=== PATIENT | female | born 1980 | race African-American/Black ===

== ENCOUNTER 2017-10-21 08:22 | Emergency (ER) | payer OTHER ==
[~2017-10-21] VITALS: Ht 167.6 cm; Wt 98.4 kg
[2017-10-21] MEDS ORDERED: ACCUNEB SO1.25 MG/1 INH (08:33)
[2017-10-21 11:00] VITALS: BP 147/91
[2017-10-21] MEDS ORDERED: MUCINEX DM ER1 EACH PO (11:02)
[2017-10-21] MEDS ORDERED: PREDNISONE 20 M20 MG PO (11:02)
[2017-10-21] MEDS ORDERED: VENTOLIN HFA 1818 GM INH (11:02)
== END 2017-10-21 11:00 | disposition home or self-care (01) ==
LOC: ER 08:22
DX: J45.901 Unspecified asthma with (acute) exacerbation (principal)

== ENCOUNTER 2018-01-25 11:22 | Emergency (ER) | payer OTHER ==
[~2018-01-25] VITALS: Ht 167.6 cm; Wt 104.3 kg
[~2018-01-25 11:22] MED LIST: ACCUNEB SO1.25 MG/1 INH; MUCINEX DM ER1 EACH PO; PREDNISONE 20 M20 MG PO; VENTOLIN HFA 1818 GM INH
[2018-01-25] MEDS ORDERED: IBUPROFEN 600600 M1 PO (13:17)
[2018-01-25] MEDS ORDERED: NORCO 5-325 TA1 EACH PO (13:17)
[2018-01-25] MEDS ORDERED: CLEOCIN HCL150 MG PO (13:17)
[2018-01-25] MEDS ORDERED: DIFLUCAN200 MG PO (13:24)
== END 2018-01-25 13:28 | disposition home or self-care (01) ==
LOC: ER 11:22
DX: K04.7 Periapical abscess without sinus (principal); J45.909 Unspecified asthma, uncomplicated